=== PATIENT | male | born 1985 | race Caucasian/White ===

== ENCOUNTER 2021-09-22 10:37 | Emergency (ER) | payer SELFPAY ==
[~2021-09-22] VITALS: Ht 170.2 cm; Wt 66.0 kg
[2021-09-22] MEDS ORDERED: ONDANSETRON HCL 4MG/2ML INJ IV ONE (11:00)
[2021-09-22] MEDS ORDERED: MORPHINE SULFATE 4 MG/ML CPJ (NOT FOR IM USE) IV ONE ×2 (11:00→12:45)
[2021-09-22] MEDS ORDERED: PROPOFOL 200MG/20ML VIAL IV ONE (11:30)
[2021-09-22] MEDS ORDERED: LIDOCAINE HCL/EPINEPHRINE 1%-EPI 1:100,000 20 ML VIAL INFIL ONE (11:30)
[2021-09-22] MEDS ORDERED: PROPOFOL 200MG/20ML VIAL IV NR (12:45)
[2021-09-22] MEDS ORDERED: LIDOCAINE HCL/EPINEPHRINE 1%-EPI 1:100,000 20 ML VIAL INFIL NR (12:45)
[2021-09-22] MEDS ORDERED: NAPR-1176 MT (16:02)
[2021-09-22] MEDS ORDERED: HYDR-4001 MT (16:02)
[2021-09-22 17:00] VITALS: BP 150/82
== END 2021-09-22 17:10 | disposition home or self-care (01) ==
LOC: EDSEX 10:37 → ER 10:37
DX: S52.92XA Unspecified fracture of left forearm, initial encounter for closed fracture (principal); S52.292A Other fracture of shaft of left ulna, initial encounter for closed fracture; W18.39XA Other fall on same level, initial encounter; Y93.89 Activity, other specified; Y92.89 Other specified places as the place of occurrence of the external cause; Y99.8 Other external cause status
CPT/HCPCS: 25605; 73090; 73110; 96374; 99152; 99285; J2270; J2405; J2704; J3490; Z7610